=== PATIENT | female | born 1980 | race Caucasian/White ===

== ENCOUNTER 2016-04-26 16:33 | Emergency (ER) | payer SELFPAY ==
[~2016-04-26] VITALS: Ht 154.9 cm; Wt 85.0 kg
[~2016-04-26 16:33] MED LIST: ANAPROX275 MG OR; AUGMENTIN875TAB PO; BACTRIM DS1 TAB PO; DENIES CURRENT MEDS; DOXYCYCL HYC100 M4 PO; DOXYCYCL HYC100 MG PO; LORTAB 10 PO; LORTAB 1010 MG PO; NO; ULTRAM50 M1 PO
[2016-04-26] MEDS ORDERED: NAPROSYN500 MG PO (17:31)
[2016-04-26] MEDS ORDERED: PENICILLN VK500 MG PO (17:31)
[2016-04-26 17:33] VITALS: BP 137/92
== END 2016-04-26 17:30 | disposition home or self-care (01) | DRG 159 ==
LOC: ED 16:33
DX: K04.7 Periapical abscess without sinus (principal); F17.200 Nicotine dependence, unspecified, uncomplicated; K08.89 Other specified disorders of teeth and supporting structures

== ENCOUNTER 2016-11-06 11:37 | Emergency (ER) | payer SELFPAY ==
[~2016-11-06] VITALS: Ht 154.9 cm; Wt 65.9 kg
[~2016-11-06 11:37] MED LIST changes: +NAPROSYN500 MG PO; +PENICILLN VK500 MG PO
[2016-11-06 12:26] LABS: HEMATOCRIT 35.5 % (37.0-47.0); HEMOGLOBIN 12.1 g/dl (12.0-16.0); IMMATURE GRANULOCYTES 0.4 % (0.0-1.0); MEAN CELL VOLUME 85.1 fL CALC (80.0-100.0); MEAN CORPUSCULAR HGB CONC 34.1 g/L CALC (32.0-36.0); NEUT# 5.79 thou/uL (2.00-7.15); RED BLOOD COUNT 4.17 mill/uL (4.20-5.60); RED CELL DISTRI WIDTH 13.1 % (11.5-15.5); URINE BILIRUBIN - DIPSTICK NEGATIVE (NEGATIVE); URINE BLOOD DIPSTICK LARGE (NEGATIVE); URINE CLARITY SLIGHT CLOUDY; URINE COLOR RED; URINE GLUCOSE - DIPSTICK NEGATIVE (NEGATIVE); URINE KETONE NEGATIVE (NEGATIVE); URINE LEUK ESTERASE TRACE (NEGATIVE); URINE NITRITE - DIPSTICK NEGATIVE (Negative); URINE PROTEIN - DIPSTICK 30 mg/dL (NEG-TRACE); URINE UROBILINOGEN - DIPSTICK 0.2 E.U./dL (0.2)
[2016-11-06 12:30] LABS: URINE BACTERIA FEW hpf; URINE EPITHELIAL CELLS FEW EPI/hpf (0-FEW); URINE RBC 50-100 RBC/hpf (0-5)
[2016-11-06 12:34] VITALS: BP 113/76
[2016-11-06 12:35] LABS: ALBUMIN 4.2 g/dL (3.2-5.0); ALKALINE PHOSPHATASE 53 u/l (38-126); ANION GAP 18 (6-22 (CALC)); BILIRUBIN, TOTAL 0.5 mg/dL (0.0-1.4); BUN 8 mg/dL (7-17); BUN/CREATININE RATIO 10 (12-20 (CALC)); CALCIUM 9.2 mg/dL (8.4-10.2); CARBON DIOXIDE 22 mmol/l (22-30); CHLORIDE 106 mmol/l (95-108); CREATININE 0.7 mg/dL (0.5-1.0); GFR > 60 ML/MIN (>=60 (CALC)); GFR FOR AFR.AMER. > 60 ML/MIN (>=60 (CALC)); GLUCOSE 89 mg/dL (65-105); POTASSIUM 3.8 mmol/l (3.5-5.1); SGOT/AST 12 u/l (14-36); SGPT/ALT 31 u/l (9-52); SODIUM 142 mmol/l (137-146); TOTAL PROTEIN 7.3 g/dL (6.3-8.2)
[2016-11-06 13:00] LABS: BETA-HCG, QUANT(RESULT NUMBER) 3025 mIU/mL
== END 2016-11-06 16:12 | disposition home or self-care (01) | DRG 781 ==
LOC: ED 11:37
PROVIDERS: Emergency Medicine
DX: O46.91 Antepartum hemorrhage, unspecified, first trimester (principal); O10.911 Unspecified pre-existing hypertension complicating pregnancy, first trimester; O99.331 Smoking (tobacco) complicating pregnancy, first trimester; F17.210 Nicotine dependence, cigarettes, uncomplicated; R93.5 Abnormal findings on diagnostic imaging of other abdominal regions, including retroperitoneum

== ENCOUNTER 2017-06-09 18:04 | Emergency (ER) | payer SELFPAY ==
[~2017-06-09] VITALS: Ht 154.9 cm; Wt 72.2 kg
[2017-06-09] MEDS ORDERED: FLEXERIL PO (18:25)
[2017-06-09] MEDS ORDERED: TORADOL PO (18:25)
[2017-06-09 18:30] VITALS: BP 155/89
== END 2017-06-09 18:30 | disposition home or self-care (01) | DRG 563 ==
LOC: ED 18:04
DX: S29.012A Strain of muscle and tendon of back wall of thorax, initial encounter (principal); E78.00 Pure hypercholesterolemia, unspecified; F17.210 Nicotine dependence, cigarettes, uncomplicated; I10 Essential (primary) hypertension; X58.XXXA Exposure to other specified factors, initial encounter

== ENCOUNTER 2018-09-06 08:11 | Emergency (ER) | payer SELFPAY ==
[~2018-09-06] VITALS: Ht 154.9 cm; Wt 70.5 kg
[~2018-09-06 08:11] MED LIST changes: +FLEXERIL PO; +TORADOL PO
[2018-09-06 08:45] LABS: HEMATOCRIT 32.1 % (37.0-47.0); IMMATURE GRANULOCYTES 0.7 % (0.0-5.0); MEAN CORPUSCULAR HGB 27.9 pG CALC (26.0-32.0); MEAN CORPUSCULAR HGB CONC 34.3 g/L CALC (32.0-36.0); NEUT# 8.81 thou/uL (2.00-7.15); RED BLOOD COUNT 3.94 mill/uL (4.20-5.60); RED CELL DISTRI WIDTH 13.3 % (11.5-15.5)
[2018-09-06 08:46] LABS: MEAN CELL VOLUME 81.5 fL CALC (80.0-100.0)
[2018-09-06 09:12] LABS: URINE BLOOD DIPSTICK NEGATIVE (NEGATIVE); URINE COLOR YELLOW; URINE GLUCOSE - DIPSTICK 100 mg/dL (NEGATIVE); URINE KETONE TRACE mg/dL (NEGATIVE); URINE LEUK ESTERASE NEGATIVE (NEGATIVE); URINE NITRITE - DIPSTICK NEGATIVE (Negative); URINE PH 5.5 (4.5-8.0); URINE PROTEIN - DIPSTICK 30 mg/dL (NEG-TRACE); URINE SPECIFIC GRAVITY >=1.030
[2018-09-06 09:13] LABS: COCAINE NEGATIVE (NEGATIVE); TETRAHYDROCANNABIONOL POSITIVE (NEGATIVE)
[2018-09-06 09:14] LABS: BARBITURATES NEGATIVE (NEGATIVE); METHADONE NEGATIVE (NEGATIVE); OXCYCODONE NEGATIVE (NEGATIVE); TRICYLIC ANTIDEPRESSANTS NEGATIVE (NEGATIVE)
[2018-09-06 09:21] LABS: ANION GAP 20 (6-22 (CALC)); BUN 17 mg/dL (7-17); BUN/CREATININE RATIO 21 (12-20 (CALC)); CHLORIDE 108 mmol/l (95-108); CREATININE 0.8 mg/dL (0.5-1.0); ETHYL ALCOHOL 0 mg/dl (0-30); GFR > 60 ML/MIN (>=60 (CALC)); GFR FOR AFR.AMER. > 60 ML/MIN (>=60 (CALC)); POTASSIUM 3.2 mmol/l (3.5-5.1); SODIUM 142 mmol/l (137-146)
[2018-09-06 09:23] LABS: CARBON DIOXIDE 17 mmol/l (22-30)
[2018-09-06 09:23] LABS: URINE BILIRUBIN - DIPSTICK SMALL (NEGATIVE); URINE MUCUS FEW hpf (NONE-FEW); URINE RBC 0-2 RBC/hpf (0-5); URINE WBC 0-2 WBC/hpf (0-5)
[2018-09-06] MEDS ORDERED: AMOXICILLIN500 M2 PO (09:27)
[2018-09-06] MEDS ORDERED: K-TAB20 MEQ PO (09:30)
[2018-09-06 09:53] VITALS: BP 128/71
== END 2018-09-06 09:53 | disposition home or self-care (01) | DRG 880 ==
LOC: ED 08:11
PROVIDERS: Family Medicine
DX: F41.9 Anxiety disorder, unspecified (principal); J02.9 Acute pharyngitis, unspecified; F15.90 Other stimulant use, unspecified, uncomplicated; F12.90 Cannabis use, unspecified, uncomplicated; F19.90 Other psychoactive substance use, unspecified, uncomplicated; I10 Essential (primary) hypertension; F17.200 Nicotine dependence, unspecified, uncomplicated